=== PATIENT | male | born 1970 | race African-American/Black ===

== ENCOUNTER 2021-03-30 01:08 | Emergency (ER) | payer OTHER ==
[~2021-03-30] VITALS: Ht 182.9 cm; Wt 127.0 kg
[2021-03-30 01:40] VITALS: BP 153/102
--- NOTE | 2021-03-30 01:52 | PHYS DOC ---
Past Medical History Past Surgical History sinus Alcohol Use: None Drug Use: None General Adult HPI: HPI: 50 year old male who had maxillary sinus surgery today at [facility] at an outpatient center reports today for continued nasal bleeding out of both nares along with dryness in the mouth. He was told the dryness in the mouth would be an expected complication from his surgery, but the nasal bleeding has not stopped after he tried Afrin at home without success. He was told by his ENT surgeon Dr. Ying to not manipulate or touch the nose. Patient denies fever, chills, shortness of breath, cough. Review of Systems: Review of Systems: ROS is otherwise negative except for what was mentioned in the HPI Heart Score: C/O Chest Pain: No Physical Exam: PE: Constitutional: No acute distress, non-toxic appearance. HENT: Blood is slowly trickling out of both nares, packing is unable to be visualized. Nose is tender to palpation and patient retracts away when exam is attempted. Mouth appears within normal limits. Normal voice Eyes: PERRLA, EOMI, conjunctiva normal, no discharge. Neck: Normal range of motion, supple, no stridor. Cardiovascular: Heart rate regular rhythm. 2+ radial pulses Lungs & Thorax: No respiratory distress, symmetrical expansion. Skin: Warm, dry. Extremities: No tenderness, no cyanosis, ROM intact, no edema. Psychologic: Affect normal, judgment normal, mood normal. Current Patient Data: Vital Signs: Vital Signs Date Time Temp Pulse Resp B/P (MAP) Pulse Ox O2 Delivery O2 Flow Rate FiO2 03/30/21 01:40 98.3 96 16 153/102 (119) 98 Room Air 98.3 Course & Med Decision Making: Course & Med Decision Making Since according to the patient's instructions, manipulation of the nose is not possible since the patient had surgery today, I will defer further management to the patient surgeon and ENT consultants at [facility] where the patient had surgery today. I offered to hold pressure and/or pack the nose and they refused I offered formal transfer to the patient, who refused in lieu of using their own private vehicle. The patient has medical decision-making capacity. They will now go to [facility] for further care. Afrin was also offered and refused by the patient. The nasal bleeding is minor at this time. Patient was discharged in stable condition. I provided report to Dr. Mclean at [facility] Departure Departure Impression: Primary Impression: Epistaxis Disposition: 01 HOME / SELF CARE / HOMELESS Referrals: ISAAC PAZ (PCP) Patient Instructions: Nosebleed, [id number] Additional Instructions: You were offered formal transfer to [facility] but refused to use your private vehicle. I have discussed your care with the ER at [facility] so go there immediately for further care. If something occurs en route that worries you, please go to the nearest ER. It is important to realize that we can only evaluate you during the time that you are in her department. Occasionally health conditions can worsen upon leaving the emergency department. If this were to happen, please return to and allow us the opportunity to reevaluate you. It is a pleasure to take care of your health needs. Return to the ER if your symptoms worsen, do not improve, or if you develop additional symptoms that are concerning to you MATILDE WATKINS DO Mar 30, 2021 01:52
[2021-03-30] MEDS ORDERED: OXYMETAZOLINE 0.05% NASAL SPRAY 30ML BOTTLE. NS ONE (02:00)
== END 2021-03-30 02:30 | disposition home or self-care (01) ==
LOC: ER 01:08
DX: R04.0 Epistaxis (principal); R07.89 Other chest pain
CPT/HCPCS: 99281